=== PATIENT | male | born 1960 | race Caucasian/White ===

== ENCOUNTER 2019-03-20 09:30 | Emergency (ER) | payer MEDICAID ==
[~2019-03-20] VITALS: Ht 172.7 cm; Wt 90.9 kg
[2019-03-20] MEDS ORDERED: morphine 4 MG/ML inj SYRINge IV PRN (09:45)
[2019-03-20] MEDS ORDERED: ondansetron/PF 4mg/2ml inj IV ONE (09:45)
[2019-03-20] MEDS ORDERED: normal saline 1000ML IV soln IVB ONE (09:45)
[2019-03-20 10:06] LABS: EOSINOPHILS # (AUTO) 0.1 X10'3 (0-0.9); HEMOGLOBIN 16.6 g/dl (14.0-17.9); MEAN CORPUSCULAR VOLUME 85.9 FL (78-98)
[2019-03-20 10:07] LABS: BASOPHILS % (AUTO) 0.9 % (0-1); EOSINOPHILS % (AUTO) 2.1 % (0-6); LYMPHOCYTES % (AUTO) 17.9 % (21-51); MEAN CORPUSCULAR HEMOGLOBIN 29.7 PG (27.0-31.0); MEAN CORPUSCULAR HGB CONC 34.6 g/dL (33.0-36.5); MEAN PLATELET VOLUME 8.8 FL (7.4-10.4); MONOCYTES # (AUTO) 0.7 X10'3 (0-0.9); MONOCYTES % (AUTO) 13.3 % (2-12); NEUTROPHILS # (AUTO) 3.6 X10'3 (1.8-7.7); NEUTROPHILS % (AUTO) 65.8 % (42-75); PLATELET COUNT 145 X10'3 (140-440); RED BLOOD COUNT 5.58 X10'6 (4.70-6.10); WHITE BLOOD COUNT 5.5 X10'3 (4.5-11.0)
[2019-03-20 10:19] LABS: ALANINE AMINOTRANSFERASE 43 U/L (12-78); ALBUMIN 4.6 G/DL (3.4-5.0); ALBUMIN/GLOBULIN RATIO 1.4 (1.1-1.5); ALKALINE PHOSPHATASE 94 IU/L (46-116); ANION GAP 11 (8-16); ASPARTATE AMINO TRANSFERASE 21 U/L (10-37); BILIRUBIN,TOTAL 0.6 MG/DL (0.1-1.0); BLOOD UREA NITROGEN 10 MG/DL (7-18); BUN/CREATININE RATIO 10.3 (5.4-32.0); CALCIUM 9.3 MG/DL (8.5-10.1); CHLORIDE 104 MMOL/L (99-107); CREATININE 0.97 MG/DL (0.60-1.10); GLUCOSE 102 MG/DL (70-104); SODIUM 139 MMOL/L (135-145); TOTAL CARBON DIOXIDE 24.5 MMOL/L (24-32); eGFR 79 ML/MIN
[2019-03-20] MEDS ORDERED: HYDR-4353 PO (11:12)
[2019-03-20] MEDS ORDERED: ORPH100T2 PO (11:24)
[2019-03-20] MEDS ORDERED: orphenadrine citrate 60mg/2ml inj. IM ONE (11:25)
[2019-03-20 12:03] VITALS: BP 123/95
== END 2019-03-20 12:04 | disposition home or self-care (01) ==
LOC: ER 09:31
DX: R07.89 Other chest pain (principal); M54.5 Low back pain; G89.29 Other chronic pain; B34.9 Viral infection, unspecified; Z87.891 Personal history of nicotine dependence
CPT/HCPCS: 36415; 71045; 80053; 84484; 85025; 93005; 96372; 96374; 96375; 99284; J2270; J2360; J2405; J7030

== ENCOUNTER 2020-10-29 08:39 | Emergency (ER) | payer MEDICAID ==
[~2020-10-29] VITALS: Ht 172.7 cm; Wt 90.0 kg
[~2020-10-29 08:39] MED LIST: ORPH100T2 PO
[2020-10-29 08:54] VITALS: BP 149/102
[2020-10-29] MEDS ORDERED: PRED10TA23 PO (09:27)
== END 2020-10-29 09:37 | disposition home or self-care (01) ==
LOC: ER 08:40
DX: L21.0 Seborrhea capitis (principal); Z79.899 Other long term (current) drug therapy
CPT/HCPCS: 99283

== ENCOUNTER 2020-11-22 13:58 | Emergency (ER) | payer MEDICAID ==
[~2020-11-22] VITALS: Ht 172.7 cm; Wt 90.0 kg
[~2020-11-22 13:58] MED LIST changes: +PRED10TA23 PO
[2020-11-22 14:02] VITALS: BP 149/100
== END 2020-11-22 16:32 | disposition left against medical advice (07) ==
LOC: ER 13:59
DX: R21 Rash and other nonspecific skin eruption (principal); Z53.21 Procedure and treatment not carried out due to patient leaving prior to being seen by health care provider

== ENCOUNTER 2020-12-15 09:59 | Emergency (ER) | payer MEDICAID ==
[~2020-12-15] VITALS: Ht 172.7 cm; Wt 86.4 kg
[~2020-12-15 09:59] MED LIST changes: -PRED10TA23 PO
[2020-12-15 10:04] VITALS: BP 152/100
[2020-12-15] MEDS ORDERED: triamcinolone acetonide 40mg/ml inj IM ONE (10:20)
== END 2020-12-15 10:57 | disposition home or self-care (01) ==
LOC: ER 09:59
DX: L25.9 Unspecified contact dermatitis, unspecified cause (principal)
CPT/HCPCS: 96372; 99283; J3301

== ENCOUNTER 2021-11-11 15:04 | Emergency (ER) | payer MEDICAID ==
[~2021-11-11] VITALS: Ht 172.7 cm; Wt 90.9 kg
[2021-11-11 15:10] VITALS: BP 160/104
[2021-11-11 15:33] LABS: BASOPHILS % (AUTO) 0.2 % (0-1); EOSINOPHILS # (AUTO) 0.1 X10'3 (0-0.9); HEMATOCRIT 44.8 % (42.0-52.0); HEMOGLOBIN 15.2 g/dl (14.0-17.9); LYMPHOCYTES # (AUTO) 2.4 X10'3 (1.1-4.8); LYMPHOCYTES % (AUTO) 31.4 % (21-51); MEAN CORPUSCULAR HEMOGLOBIN 28.7 PG (27.0-31.0); MEAN CORPUSCULAR HGB CONC 33.9 g/dL (33.0-36.5); MEAN CORPUSCULAR VOLUME 84.5 FL (78-98); MEAN PLATELET VOLUME 8.5 FL (7.4-10.4); MONOCYTES # (AUTO) 0.4 X10'3 (0-0.9); MONOCYTES % (AUTO) 5.8 % (2-12); NEUTROPHILS # (AUTO) 4.8 X10'3 (1.8-7.7); NEUTROPHILS % (AUTO) 61.6 % (42-75); PLATELET COUNT 197 X10'3 (140-440); RED CELL DISTRIBUTION WIDTH 15.3 % (11.5-14.5); WHITE BLOOD COUNT 7.7 X10'3 (4.5-11.0)
[2021-11-11 15:43] LABS: APTT 26 SECONDS (22-32)
[2021-11-11 15:58] LABS: ALANINE AMINOTRANSFERASE 58 U/L (12-78); ALBUMIN 4.1 G/DL (3.4-5.0); ALBUMIN/GLOBULIN RATIO 1.2 (1.1-1.5); ALKALINE PHOSPHATASE 91 IU/L (46-116); ANION GAP 9 (8-16); ASPARTATE AMINO TRANSFERASE 29 U/L (10-37); BILIRUBIN,TOTAL 0.4 MG/DL (0.1-1.0); BLOOD UREA NITROGEN 12 MG/DL (7-18); BUN/CREATININE RATIO 14.5 (5.4-32.0); CALCIUM 8.7 MG/DL (8.5-10.1); CHLORIDE 108 MMOL/L (99-107); CREATININE 0.83 MG/DL (0.60-1.10); GLUCOSE 139 MG/DL (70-104); POTASSIUM 3.5 MMOL/L (3.5-5.1); SODIUM 142 MMOL/L (135-145); TOTAL CARBON DIOXIDE 24.8 MMOL/L (24-32); TOTAL PROTEIN 7.5 G/DL (6.4-8.2); eGFR > 90 ML/MIN
[2021-11-13] MEDS ORDERED: LORA10TA7 PO (13:42)
[2021-11-13] MEDS ORDERED: LEVO175T7 PO (13:42)
[2021-11-13] MEDS ORDERED: ATOR40TA72 PO (13:42)
[2021-11-13] MEDS ORDERED: SERT-434 PO (13:42)
[2021-11-13] MEDS ORDERED: PRED10TA PO (13:42)
[2021-11-13] MEDS ORDERED: PROP40TA72 PO (13:42)
[2021-11-13] MEDS ORDERED: MONT-40 PO (13:42)
== END 2021-11-12 00:46 | disposition left against medical advice (07) ==
LOC: ER 15:04
DX: R41.0 Disorientation, unspecified (principal); Z53.21 Procedure and treatment not carried out due to patient leaving prior to being seen by health care provider
CPT/HCPCS: 36415; 70450; 71045; 80053; 85025; 85610; 85730; 86885; 86900; 86901; 93005

== ENCOUNTER 2021-11-12 14:12 | Inpatient (IN) | payer MEDICAID ==
[~2021-11-12] VITALS: Ht 172.7 cm; Wt 93.2 kg
--- NOTE | 2021-11-12 18:05 | NUR ---
tele neuro in process.
[2021-11-12 18:07] LABS: BASOPHILS % (AUTO) 0.3 % (0-1); EOSINOPHILS # (AUTO) 0.1 X10'3 (0-0.9); EOSINOPHILS % (AUTO) 1.7 % (0-6); HEMATOCRIT 46.1 % (42.0-52.0); HEMOGLOBIN 15.7 g/dl (14.0-17.9); LYMPHOCYTES # (AUTO) 2.5 X10'3 (1.1-4.8); LYMPHOCYTES % (AUTO) 31.2 % (21-51); MEAN CORPUSCULAR VOLUME 85.3 FL (78-98); MONOCYTES # (AUTO) 0.5 X10'3 (0-0.9); MONOCYTES % (AUTO) 6.8 % (2-12); NEUTROPHILS # (AUTO) 4.8 X10'3 (1.8-7.7); PLATELET COUNT 197 X10'3 (140-440); RED CELL DISTRIBUTION WIDTH 15.3 % (11.5-14.5); WHITE BLOOD COUNT 8.1 X10'3 (4.5-11.0)
[2021-11-12 18:11] LABS: ALBUMIN 4.2 G/DL (3.4-5.0); ALBUMIN/GLOBULIN RATIO 1.4 (1.1-1.5); ALKALINE PHOSPHATASE 93 IU/L (46-116); BILIRUBIN,TOTAL 0.4 MG/DL (0.1-1.0); BLOOD UREA NITROGEN 12 MG/DL (7-18); MAGNESIUM 2.1 MG/DL (1.5-2.4); TOTAL CARBON DIOXIDE 24.1 MMOL/L (24-32); TOTAL PROTEIN 7.2 G/DL (6.4-8.2)
[2021-11-12 18:38] LABS: ALANINE AMINOTRANSFERASE 54 U/L (12-78); ANION GAP 12 (8-16); ASPARTATE AMINO TRANSFERASE 21 U/L (10-37); BUN/CREATININE RATIO 16.9 (5.4-32.0); CALCIUM 8.7 MG/DL (8.5-10.1); CHLORIDE 105 MMOL/L (99-107); CREATININE 0.71 MG/DL (0.60-1.10); GLUCOSE 107 MG/DL (70-104); POTASSIUM 3.6 MMOL/L (3.5-5.1); SODIUM 141 MMOL/L (135-145); eGFR > 90 ML/MIN
[2021-11-12] MEDS ORDERED: POTASSIUM BICARB 20meq eff tab 20 MEQ TABLET.EFF PO PRN ×2 (20:10)
[2021-11-12] MEDS ORDERED: magnesium hydroxide 30ml (MOM) UD suspension PO PRN (20:10)
[2021-11-12] MEDS ORDERED: acetaminophen 325mg tablet PO PRN (20:10)
[2021-11-12] MEDS ORDERED: magnesium 4gm in 100ml NS 100 ML IV PRN (20:10)
[2021-11-12] MEDS ORDERED: ondansetron/PF 4mg/2ml inj IV PRN (20:10)
[2021-11-12] MEDS ORDERED: magnesium 2GM in 50ml NS 50 ML IV PRN (20:10)
[2021-11-12] MEDS ORDERED: mag hydrox/Alum hydrox/simeth 30ml oral suspension PO PRN (20:10)
[2021-11-12] MEDS ORDERED: magnesium Cl slow-release 64mg tablet PO PRN (20:10)
[2021-11-12] MEDS ORDERED: HYDROcodone/acetaminophen 5mg/325mg tablet PO PRN (20:10)
[2021-11-12] MEDS ORDERED: potassium CL 10mEq/100ml bag 100 ML IV PRN (20:10)
[2021-11-12 20:34] LABS: HEMOGLOBIN A1C 5.8 % (4.5-6.2)
[2021-11-12] MEDS: aspirin 81mg tab.chew PO SCH (21:02)
[2021-11-12] MEDS: atorvastatin 20mg tablet PO SCH (21:03)
[2021-11-13] VITALS (7 sets, daily range): BP systolic 125–148; BP diastolic 87–101
--- NOTE | 2021-11-13 06:57 | NUR ---
Patient in room PCU 3017. I have received report from NELLA Oquendo and had the opportunity to ask questions and assume patient care.
[2021-11-13 06:59] LABS: BASOPHILS % (AUTO) 0.1 % (0-1); EOSINOPHILS # (AUTO) 0.1 X10'3 (0-0.9); EOSINOPHILS % (AUTO) 0.5 % (0-6); HEMATOCRIT 46.8 % (42.0-52.0); HEMOGLOBIN 15.6 g/dl (14.0-17.9); LYMPHOCYTES # (AUTO) 1.8 X10'3 (1.1-4.8); LYMPHOCYTES % (AUTO) 13.5 % (21-51); MEAN CORPUSCULAR HEMOGLOBIN 28.2 PG (27.0-31.0); MEAN CORPUSCULAR HGB CONC 33.4 g/dL (33.0-36.5); MEAN CORPUSCULAR VOLUME 84.5 FL (78-98); MEAN PLATELET VOLUME 8.8 FL (7.4-10.4); MONOCYTES # (AUTO) 0.7 X10'3 (0-0.9); MONOCYTES % (AUTO) 5.2 % (2-12); NEUTROPHILS # (AUTO) 10.6 X10'3 (1.8-7.7); NEUTROPHILS % (AUTO) 80.7 % (42-75); PLATELET COUNT 196 X10'3 (140-440); RED BLOOD COUNT 5.54 X10'6 (4.70-6.10); RED CELL DISTRIBUTION WIDTH 15.2 % (11.5-14.5); WHITE BLOOD COUNT 13.2 X10'3 (4.5-11.0)
[2021-11-13 07:27] LABS: ALANINE AMINOTRANSFERASE 45 U/L (12-78); ALBUMIN 3.9 G/DL (3.4-5.0); ALBUMIN/GLOBULIN RATIO 1.3 (1.1-1.5); ALKALINE PHOSPHATASE 80 IU/L (46-116); ANION GAP 11 (8-16); ASPARTATE AMINO TRANSFERASE 21 U/L (10-37); BILIRUBIN,TOTAL 0.9 MG/DL (0.1-1.0); BLOOD UREA NITROGEN 13 MG/DL (7-18); BUN/CREATININE RATIO 19.7 (5.4-32.0); CALCIUM 8.7 MG/DL (8.5-10.1); CHLORIDE 106 MMOL/L (99-107); CHOL/HDL RATIO 5.6 (0.00-4.99); CHOLESTEROL 180 MG/DL (0-200); CREATININE 0.66 MG/DL (0.60-1.10); GLUCOSE 114 MG/DL (70-104); HDL CHOLESTEROL 32 MG/DL (35-60); LDL CHOLESTEROL 103 MG/DL (50-100); MAGNESIUM 2.1 MG/DL (1.5-2.4); POTASSIUM 3.7 MMOL/L (3.5-5.1); SODIUM 140 MMOL/L (135-145); TOTAL CARBON DIOXIDE 22.6 MMOL/L (24-32); TOTAL PROTEIN 6.9 G/DL (6.4-8.2); TRIGLYCERIDES 229 MG/DL (20-135); eGFR > 90 ML/MIN
[2021-11-13] MEDS: K and/or MAG REPLACEMENT MC SCH ×2 (08:00→20:00)
[2021-11-13] MEDS: aspirin 81mg tab.chew PO SCH (08:25)
[2021-11-13] MEDS: docusate sod 100mg capsule PO SCH ×2 (08:25→21:09)
[2021-11-13] MEDS: atorvastatin 20mg tablet PO SCH (08:25)
[2021-11-13 08:40] LABS: URINE AMPHETAMINE SCREEN NEGATIVE (Neg); URINE BARBITUATE SCREEN NEGATIVE (Neg); URINE BENZODIAZEPINES SCREEN NEGATIVE (Neg); URINE CANNABINOID SCREEN POSITIVE (Neg); URINE COCAINE SCREEN NEGATIVE (Neg); URINE METHADONE SCREEN NEGATIVE (Neg); URINE OPIATE SCREEN NEGATIVE (Neg); URINE PHENCYCLIDINE SCREEN NEGATIVE (Neg)
[2021-11-13 08:47] LABS: CLARITY,URINE CLEAR (Clear); COLOR,URINE YELLOW (Yellow); GLUCOSE, URINE NEGATIVE (Neg); KETONES,URINE NEGATIVE (Neg); LEUKOCYTE ESTERASE ,URINE NEGATIVE (Neg); NITRITES, URINE NEGATIVE (Neg); OCCULT BLOOD,URINE SMALL (Neg); PROTEIN,URINE NEGATIVE (Neg)
[2021-11-13 09:00] LABS: UA COLLECTION TYPE NON-SPECIFIED
[2021-11-13 09:10] LABS: BACTERIA,URINE FEW /HPF (Neg); MUCUS STRANDS MANY /LPF (Neg); SQUAMOUS EPITHELIAL CELL,UR FEW /LPF (FEW)
[2021-11-13 09:12] LABS: RBC,URINE 20-50 /HPF (0-2)
[2021-11-13] MEDS ORDERED: MONT-40 PO (13:42)
[2021-11-13] MEDS ORDERED: SERT-434 PO (13:42)
[2021-11-13] MEDS ORDERED: ATOR40TA72 PO (13:42)
[2021-11-13] MEDS ORDERED: PRED10TA PO (13:42)
[2021-11-13] MEDS ORDERED: PROP40TA72 PO (13:42)
[2021-11-13] MEDS ORDERED: LEVO175T7 PO (13:42)
[2021-11-13] MEDS ORDERED: LORA10TA7 PO (13:42)
--- NOTE | 2021-11-13 19:08 | NUR ---
Problems reprioritized. Patient report given, questions answered & plan of care reviewed with MALIK Lyles.
--- NOTE | 2021-11-13 19:10 | NUR ---
Patient in room PCU 3017. I have received report from Lexie CARMEN and had the opportunity to ask questions and assume patient care.
[2021-11-13] MEDS ORDERED: enoxaparin 40mg/0.4ml syringe SQ SCH (20:00)
[2021-11-13] MEDS ORDERED: propranolol 40mg tablet PO SCH (21:00)
[2021-11-13] MEDS: loratadine 10mg tablet PO SCH (21:14)
[2021-11-14 02:00] VITALS: BP 120/83
[2021-11-14 06:00] VITALS: BP 143/77
--- NOTE | 2021-11-14 06:05 | NUR ---
REVIEWED NNPS ASSESSMENT AND IN AGREEMENT.
--- NOTE | 2021-11-14 06:08 | NUR ---
Problems reprioritized. Patient report given, questions answered & plan of care reviewed with Lexie CARMEN.
--- NOTE | 2021-11-14 06:20 | NUR ---
Patient in room PCU 3017. I have received report from MALIK Lyles and had the opportunity to ask questions and assume patient care.
[2021-11-14 07:14] LABS: BASOPHILS % (AUTO) 0.1 % (0-1); EOSINOPHILS % (AUTO) 0.4 % (0-6); HEMATOCRIT 47.2 % (42.0-52.0); HEMOGLOBIN 15.9 g/dl (14.0-17.9); LYMPHOCYTES # (AUTO) 1.8 X10'3 (1.1-4.8); LYMPHOCYTES % (AUTO) 16.3 % (21-51); MEAN CORPUSCULAR HEMOGLOBIN 28.8 PG (27.0-31.0); MEAN CORPUSCULAR HGB CONC 33.7 g/dL (33.0-36.5); MEAN CORPUSCULAR VOLUME 85.4 FL (78-98); MONOCYTES # (AUTO) 0.5 X10'3 (0-0.9); NEUTROPHILS # (AUTO) 8.5 X10'3 (1.8-7.7); NEUTROPHILS % (AUTO) 78.2 % (42-75); PLATELET COUNT 193 X10'3 (140-440); RED BLOOD COUNT 5.52 X10'6 (4.70-6.10); RED CELL DISTRIBUTION WIDTH 15.4 % (11.5-14.5); WHITE BLOOD COUNT 10.8 X10'3 (4.5-11.0)
[2021-11-14 07:33] LABS: ALANINE AMINOTRANSFERASE 35 U/L (12-78); ALBUMIN 3.8 G/DL (3.4-5.0); ALBUMIN/GLOBULIN RATIO 1.2 (1.1-1.5); ALKALINE PHOSPHATASE 77 IU/L (46-116); ANION GAP 11 (8-16); ASPARTATE AMINO TRANSFERASE 17 U/L (10-37); BILIRUBIN,TOTAL 1.3 MG/DL (0.1-1.0); BLOOD UREA NITROGEN 16 MG/DL (7-18); BUN/CREATININE RATIO 22.2 (5.4-32.0); CALCIUM 8.8 MG/DL (8.5-10.1); CHLORIDE 106 MMOL/L (99-107); CREATININE 0.72 MG/DL (0.60-1.10); GLUCOSE 105 MG/DL (70-104); MAGNESIUM 2.2 MG/DL (1.5-2.4); POTASSIUM 3.6 MMOL/L (3.5-5.1); SODIUM 138 MMOL/L (135-145); TOTAL CARBON DIOXIDE 21.2 MMOL/L (24-32); TOTAL PROTEIN 7.1 G/DL (6.4-8.2); eGFR > 90 ML/MIN
[2021-11-14] MEDS: atorvastatin 20mg tablet PO SCH (07:54)
[2021-11-14] MEDS: aspirin 81mg tab.chew PO SCH (07:54)
[2021-11-14] MEDS: docusate sod 100mg capsule PO SCH (07:54)
[2021-11-14] MEDS: loratadine 10mg tablet PO SCH (07:54)
[2021-11-14] MEDS ORDERED: prednisone 10mg tablet PO SCH (08:00)
[2021-11-14] MEDS ORDERED: sertraline 50mg tablet PO SCH (08:00)
[2021-11-14] MEDS: K and/or MAG REPLACEMENT MC SCH (08:00)
[2021-11-14] MEDS ORDERED: atorvastatin 20mg tablet PO SCH (08:00)
[2021-11-14] MEDS ORDERED: levoTHYROXINE 175mcg tablet PO SCH (08:00)
[2021-11-14] MEDS ORDERED: montelukast 10mg tablet PO SCH (08:00)
--- NOTE | 2021-11-14 11:13 | NUR ---
Page to Dr Lombardi PAGER ID: [phone] MESSAGE: Lexie [facility] [id number] [id number] family at bedside, wanting to speak with hospitalist regarding MRI results. Thank you
[2021-11-14] MEDS ORDERED: LIDOcaine 1%/PF 5ML 10 MG/ML VIAL ONE (11:57)
--- NOTE | 2021-11-14 12:24 | NUR ---
PAGER ID: [phone] MESSAGE: Lexie [facility] [id number] [id number] pt family at bedside, becoming irritated. They are wanting to review results of MRI done yesterday with hospitalist. Thank you
[2021-11-14 12:45] VITALS: BP 128/87
[2021-11-14 15:30] VITALS: BP 122/81
--- NOTE | 2021-11-14 18:36 | NUR ---
Page to Dr Lombardi PAGER ID: [phone] MESSAGE: Lexie [facility] [id number] 3017 pt has eloped. [employer] notified
--- NOTE | 2021-11-14 18:54 | NUR ---
Problems reprioritized. Patient report given, questions answered & plan of care reviewed with MALIK Lyles.
--- NOTE | 2021-11-14 19:01 | NUR ---
RN notified that pt in room and dressed in street clothes, tele box removed. After immediately going to pt's room, pt was found to be gone, as well as all his belongings. Security was immediately notified and staff began searching the floor. Tiffani aldrich was called. After requesting security to review security camera footage, it was reported that he was seen on camera leaving the front door at 1709. Security continued to review exterior cameras and noted pt to be walking towards nearby gas station. [facility] notified of high risk missing pt and the direction he was walking. , Flora, called and message left with request for her to return call as soon as possible.
== END 2021-11-14 14:00 | disposition left against medical advice (07) | DRG 52 ==
LOC: ER 14:14 → UNDOADMIN 19:39 → ED HOLD 19:39 → PCU 3S 11-13 00:20 → ED HOLD 11-13 00:20 → PCU 3S 11-14 13:32
PROVIDERS: ADMIT Surgery; ATTEND Surgery
PROC: 009U3ZX Drainage of Spinal Canal, Percutaneous Approach, Diagnostic (ICD-10-PCS; principal; 2021-11-14)
PROC: B01B1ZZ Fluoroscopy of Spinal Cord using Low Osmolar Contrast (ICD-10-PCS; 2021-11-14)
DX: G45.4 Transient global amnesia (principal); R47.01 Aphasia; R48.8 Other symbolic dysfunctions; Z79.899 Other long term (current) drug therapy
CPT/HCPCS: 36415; 62328; 70450; 70551; 71045; 77003; 80053; 80061; 80305; 81001; 83036; 83735; 84132; 84443; 85025; 87081; 93306; 93880; 99285; A4620; A6258; A6402; G0378; J1650; J3490; J7512

== ENCOUNTER 2021-11-14 19:11 | Emergency (ER) | payer MEDICAID ==
[~2021-11-14] VITALS: Ht 172.7 cm; Wt 91.6 kg
[~2021-11-14 19:11] MED LIST changes: +ATOR40TA72 PO; +LEVO175T7 PO; +LORA10TA7 PO; +MONT-40 PO; -ORPH100T2 PO; +PRED10TA PO; +PROP40TA72 PO; +SERT-434 PO
--- NOTE | 2021-11-14 22:00 | NUR ---
LATE ENTRY... I SPOKE TO DR. MATHEWS ABOUT ISOLATION FOR THIS PT. SHE STATED THE PT. IS ON NO ISOLATION. SPINAL FLUID, BRAIN TISSUE OR THYROID TISSUE WOULD BE EXCEPTION. SHE STATED YOU CAN NOT GET THIS DISEASE BY REGULAR PT. CARE. IT IS NOT PASSED BY VOMIT, SWEAT, URINE OR STOOL. ONLY IF A PROCEDURE USING INSTRAMENTS WERE USED. THOSE DOING SURGERY OR AUTOCLAVING THE TOOLS WOULD NEED TO USE SPECIAL PRECAUTIONS...... SINCE WE DID A SPINAL TAP ON THIS PT. HOUSE KEEPING USING SPECIAL PRECAUTIONS FOR THE LINEN................. NO ISOLATION NEEDED NOW.
--- NOTE | 2021-11-15 07:13 | NUR ---
SPOKE WITH LAB, PATIENTS SPINAL FLUID WILL NOT BE SENT OUT UNTIL SATURDAY 11/18 TO [facility] IN [place] WHICH HAVE THE PROPER PRECAUTIONS IN ORDER TO HANDLE THE FLUID IF IT IS TO BE CREUTZFELDT-RICKY DISEASE.
--- NOTE | 2021-11-15 08:12 | NUR ---
BEL CALLED BACK ABOUT TRANSFER, ON THE PHONE WITH DR GROVER
--- NOTE | 2021-11-15 10:18 | NUR ---
relieving RN for break, pt is resting quietly on gurney
[2021-11-15 12:30] LABS: BASOPHILS % (AUTO) 0.3 % (0-1); EOSINOPHILS # (AUTO) 0.1 X10'3 (0-0.9); EOSINOPHILS % (AUTO) 0.7 % (0-6); HEMATOCRIT 47.6 % (42.0-52.0); HEMOGLOBIN 16.1 g/dl (14.0-17.9); LYMPHOCYTES # (AUTO) 2.2 X10'3 (1.1-4.8); LYMPHOCYTES % (AUTO) 22.8 % (21-51); MEAN CORPUSCULAR HEMOGLOBIN 28.9 PG (27.0-31.0); MEAN CORPUSCULAR HGB CONC 33.8 g/dL (33.0-36.5); MEAN CORPUSCULAR VOLUME 85.6 FL (78-98); MEAN PLATELET VOLUME 8.7 FL (7.4-10.4); MONOCYTES # (AUTO) 0.7 X10'3 (0-0.9); MONOCYTES % (AUTO) 7.4 % (2-12); NEUTROPHILS # (AUTO) 6.5 X10'3 (1.8-7.7); NEUTROPHILS % (AUTO) 68.8 % (42-75); PLATELET COUNT 210 X10'3 (140-440); RED BLOOD COUNT 5.56 X10'6 (4.70-6.10); RED CELL DISTRIBUTION WIDTH 15.3 % (11.5-14.5); WHITE BLOOD COUNT 9.4 X10'3 (4.5-11.0)
[2021-11-15 12:40] LABS: ALANINE AMINOTRANSFERASE 31 U/L (12-78); ALBUMIN/GLOBULIN RATIO 1.1 (1.1-1.5); ALKALINE PHOSPHATASE 79 IU/L (46-116); ANION GAP 9 (8-16); ASPARTATE AMINO TRANSFERASE 18 U/L (10-37); BILIRUBIN,TOTAL 0.7 MG/DL (0.1-1.0); BLOOD UREA NITROGEN 22 MG/DL (7-18); BUN/CREATININE RATIO 27.8 (5.4-32.0); CALCIUM 9.1 MG/DL (8.5-10.1); CHLORIDE 105 MMOL/L (99-107); CREATININE 0.79 MG/DL (0.60-1.10); GLUCOSE 106 MG/DL (70-104); MAGNESIUM 2.2 MG/DL (1.5-2.4); POTASSIUM 4.3 MMOL/L (3.5-5.1); SODIUM 141 MMOL/L (135-145); TOTAL PROTEIN 7.8 G/DL (6.4-8.2); eGFR > 90 ML/MIN
[2021-11-15 13:39] LABS: HIV ANTIBODY 1&2 RAPID NON-REACTIVE (Neg)
[2021-11-15] MEDS ORDERED: ACYCLOVIR IV ONE ×2 (14:00)
[2021-11-15] MEDS ORDERED: NORMAL SALINE IV ONE ×2 (14:00)
--- NOTE | 2021-11-15 18:21 | NUR ---
Patient resting quietly today. Notified , Flora, of updates to pt status. Seeking transfer bed at other facility. CSF pending. Pt started on IV Acyclovir today.
[2021-11-15] MEDS ORDERED: acyclovir inj 900 MG in normal saline 250ml IV soln 232 ML IV SCH (23:00)
[2021-11-15] MEDS: ACYCLOVIR IV SCH (23:16)
[2021-11-15] MEDS: NORMAL SALINE IV SCH (23:16)
--- NOTE | 2021-11-15 23:27 | NUR ---
SPOKE TO OUR LAB... CSF FLUID IS FORZEN AND READY TO SEND TO [facility] ON WEDNESDAY.. AFTER THAT IT HAS TO BE SENT TO A NATIONAL LAB... THE BEST GUESS IS 7 TO 10 DAY TURN AROUND TIME TO FIND OUT IF HE HAS (mad cow disease)
--- NOTE | 2021-11-16 06:11 | NUR ---
PT IS STILL UNABLE TO ANSWER ANY QUESTIONS BESIDES WHAT HIS FIRST NAME IS. PT IS UNABLE TO ANSWER HIS BIRTHDATE, WHERE HE IS, OR WHY HE IS HERE
[2021-11-16] MEDS: ACYCLOVIR IV SCH ×3 (08:12→23:53)
[2021-11-16] MEDS: NORMAL SALINE IV SCH ×3 (08:12→23:53)
--- NOTE | 2021-11-16 14:47 | NUR ---
TC FROM MOTHER FOR CONDITION REPORT.
[2021-11-17] MEDS: NORMAL SALINE IV SCH (07:39)
[2021-11-17] MEDS: ACYCLOVIR IV SCH (07:39)
--- NOTE | 2021-11-17 09:59 | NUR ---
TC TO [facility] . SPOKE WITH NELLA MAGANA AND GAVE REPORT ON PATIENT. EMS BLS HAS JUST LEFT FROM THIS FACILITY, EN ROUTE TO [place]. PATIENT DEPARTED PER MARVA, IN STABLE CONDITION.
[2021-11-17 10:03] VITALS: BP 111/71
== END 2021-11-17 10:06 | disposition short-term general hospital (02) ==
LOC: ER 19:12
DX: R41.0 Disorientation, unspecified (principal); Z20.822 Contact with and (suspected) exposure to COVID-19; G93.40 Encephalopathy, unspecified; R29.818 Other symptoms and signs involving the nervous system; Z79.899 Other long term (current) drug therapy
CPT/HCPCS: 36415; 80053; 83735; 84145; 85025; 86703; 87635; 87811; 96365; 96366; 99285; C9803; J0133; J7050